=== PATIENT | female | born 1940 | race African-American/Black ===

== ENCOUNTER 2020-08-04 12:11 | Outpatient (CLI) | payer MEDICARE ==
[2020-08-04 14:16] LABS: Anion Gap 14 mmol/L (10-20); BUN (Urea Nitrogen) 12 mg/dL (9.8-20.1); Calc. Creatinine Clearance 0 mL/min (70-130); Calcium 10.6 mg/dL (7.8-10.44); Carbon Dioxide 26 mmol/L (23-31); Chloride 105 mmol/L (98-107); Glucose 85 mg/dL (83-110); Potassium 3.9 mmol/L (3.5-5.1); Sodium 141 mmol/L (136-145)
[2020-08-04 23:06] LABS: SARS-CoV-2 PCR by NAA Not Detected (NotDetected)
== END 2020-08-04 12:12 | disposition home or self-care (01) ==
LOC: LABBT 12:11
PROVIDERS: ATTEND Student in an Organized Health Care Education/Training Program
DX: Z01.818 Encounter for other preprocedural examination (principal); D35.1 Benign neoplasm of parathyroid gland; E21.3 Hyperparathyroidism, unspecified; E83.52 Hypercalcemia; M81.0 Age-related osteoporosis without current pathological fracture; Z20.822 Contact with and (suspected) exposure to COVID-19
CPT/HCPCS: 80048; 85014; 85018; 93005; U0003; U0005; 87635; 93010

== ENCOUNTER 2020-08-16 13:48 | Outpatient (CLI) | payer MEDICARE | END 2020-08-16 13:49 | disposition home or self-care (01) | LOC: BICRAD 13:48 | PROVIDERS: ATTEND Family Medicine | DX: S99.922D Unspecified injury of left foot, subsequent encounter (principal) ==